=== PATIENT | male | born 1990 | race Hispanic/Latino ===

== ENCOUNTER 2017-02-01 13:39 | Emergency (ER) | payer OTHER ==
[~2017-02-01] VITALS: Ht 170.2 cm; Wt 82.0 kg
[2017-02-01 14:30] LABS: HEMATOCRIT 45.7 % (39.0-50.0); HEMOGLOBIN 15.4 g/dl (14.0-18.0); IMMATURE GRANULOCYTES 0.5 % (0.0-1.0); MEAN CELL VOLUME 92.3 fL CALC (80.0-100.0); MEAN CORPUSCULAR HGB 31.1 pG CALC (26.0-32.0); MEAN CORPUSCULAR HGB CONC 33.7 g/L CALC (32.0-36.0); NEUT# 14.41 thou/uL (1.82-7.42); RED BLOOD COUNT 4.95 mill/uL (4.70-6.10); RED CELL DISTRI WIDTH 13.2 % (11.5-15.5)
[2017-02-01 14:53] LABS: ALBUMIN 4.8 g/dL (3.2-5.0); ALKALINE PHOSPHATASE 80 u/l (38-126); ANION GAP 20 (6-22 (CALC)); BILIRUBIN, TOTAL 0.7 mg/dL (0.0-1.4); BUN 16 mg/dL (9-20); BUN/CREATININE RATIO 17 (12-20 (CALC)); CALCIUM 9.6 mg/dL (8.4-10.2); CARBON DIOXIDE 22 mmol/l (22-30); CHLORIDE 100 mmol/l (95-108); GFR > 60 ML/MIN (>=60 (CALC)); GFR FOR AFR.AMER. > 60 ML/MIN (>=60 (CALC)); GLUCOSE 128 mg/dL (75-110); POTASSIUM 4.3 mmol/l (3.5-5.1); SGOT/AST 27 u/l (17-59); SGPT/ALT 37 u/l (21-72); SODIUM 138 mmol/l (137-146); TOTAL PROTEIN 7.8 g/dL (6.3-8.2)
[2017-02-01] MEDS ORDERED: CLINDAMYCIN300 M1 PO (16:03)
[2017-02-01] MEDS ORDERED: MOTRIN800 MG PO (16:03)
[2017-02-01] MEDS ORDERED: BACTRIM DS1 TAB PO (16:03)
[2017-02-01 16:20] VITALS: BP 135/81
== END 2017-02-01 16:30 | disposition left against medical advice (07) | DRG 603 ==
LOC: ED 13:39 → ED-I 14:56 → ED 14:56 → ED-I 15:19 → ED 16:30
PROVIDERS: Emergency Medicine
DX: L03.116 Cellulitis of left lower limb (principal); R50.9 Fever, unspecified; T63.301A Toxic effect of unspecified spider venom, accidental (unintentional), initial encounter; Z91.19 Patient's noncompliance with other medical treatment and regimen; Y92.89 Other specified places as the place of occurrence of the external cause